=== PATIENT | male | born 1950 | race African-American/Black ===

== ENCOUNTER 2021-01-31 15:01 | Emergency (ER) | payer MEDICARE ==
[~2021-01-31] VITALS: Ht 185.4 cm; Wt 77.0 kg
[2021-01-31 15:05] VITALS: BP 140/93
== END 2021-01-31 16:54 | disposition home or self-care (01) ==
LOC: ER 15:01
DX: K40.90 Unilateral inguinal hernia, without obstruction or gangrene, not specified as recurrent (principal); R03.0 Elevated blood-pressure reading, without diagnosis of hypertension; Z86.59 Personal history of other mental and behavioral disorders
CPT/HCPCS: 99281

== ENCOUNTER 2021-02-10 09:20 | Emergency (ER) | payer MEDICARE ==
[~2021-02-10] VITALS: Ht 185.4 cm; Wt 77.0 kg
[2021-02-10] MEDS ORDERED: IBUPROFEN 600MG TABLET PO ONE (09:45)
[2021-02-10] MEDS ORDERED: IBUP-2029 MT (10:42)
[2021-02-10 10:53] VITALS: BP 112/60
== END 2021-02-10 10:54 | disposition home or self-care (01) ==
LOC: ER 09:20
DX: M25.551 Pain in right hip (principal); Z91.81 History of falling
CPT/HCPCS: 73502; 99282

== ENCOUNTER 2021-09-11 08:22 | Emergency (ER) | payer MEDICARE ==
[~2021-09-11] VITALS: Ht 182.9 cm; Wt 75.0 kg
[~2021-09-11 08:22] MED LIST: IBUP-2029 MT
[2021-09-11 08:33] VITALS: BP 153/90
== END 2021-09-11 11:18 | disposition left against medical advice (07) ==
LOC: ER 08:28
DX: K08.89 Other specified disorders of teeth and supporting structures (principal); Z53.21 Procedure and treatment not carried out due to patient leaving prior to being seen by health care provider

== ENCOUNTER 2024-01-24 11:28 | Emergency (ER) | payer MEDICARE ==
[~2024-01-24] VITALS: Ht 182.9 cm; Wt 73.0 kg
[~2024-01-24 11:28] MED LIST changes: +ALBU18HF2 IH; +AMLO5TAB88 PO; +FLUT1DIS3 INH; +P20 MT
[2024-01-24 12:08] LABS: HEMATOCRIT. 42.3 % (42.0-52.0); HEMOGLOBIN. 14.3 g/dL (14.0-18.0); MEAN CORPUSCULAR HEMOGLOBIN 32.1 pg (28.0-32.0); MEAN CORPUSCULAR HGB CONC 33.8 g/dL (31.0-37.0); MEAN CORPUSCULAR VOLUME 95.1 fL (80.0-94.0); MEAN PLATELET VOLUME 7.3 fl (7.4-10.4); PLATELET 261 x1000/uL (130-400); RED BLOOD CELL COUNT 4.45 mill/uL (4.7-6.1); RED CELL DISTRIBUTION WIDTH 13.5 % (11.6-14.6); WHITE BLOOD COUNT 10.9 x1000/uL (4.5-11.0)
[2024-01-24 12:14] LABS: DIFFERENTIAL COMMENT 1
[2024-01-24 12:33] LABS: CREATININE 1.1 mg/dL (0.6-1.3); GLUCOSE 98 mg/dL (70-105); TROPONIN I HIGH SENSITIVITY 17 ng/L (3.0-53); UREA NITROGEN BLOOD 7 mg/dL (9-23)
[2024-01-24] MEDS: MORPHINE SULFATE 2 MG/ML CPJ (NOT FOR IM USE) IV ONE (13:41)
[2024-01-24 15:30] LABS: PLATELET ESTIMATE NORMAL
[2024-01-24] MEDS: HALOPERIDOL LACTATE 5MG/ML VIAL IM ONE (16:11)
[2024-01-24] MEDS: FAMOTIDINE 20MG/2ML VIAL IV STA (16:11)
[2024-01-24] MEDS: MAGNESIUM/ALUMINUM HYDROXIDE/SIMETHICONE 30ML UDC PO STA (16:11)
[2024-01-24] MEDS: BISMUTH SUBSALICYLATE 262 MG/15 ML-120ML BOTTLE PO ONE (16:16)
[2024-01-24 16:47] LABS: CHLORIDE 104 mEq/L (98-107); POTASSIUM 5.4 mEq/L (3.5-5.1); SODIUM 138 mEq/L (136-145)
[2024-01-24 16:48] LABS: CARBON DIOXIDE 18 mEq/L (21-32)
[2024-01-24 16:49] LABS: CALCIUM 9.7 mg/dL (8.7-10.4)
[2024-01-24] MEDS: MORPHINE SULFATE 4 MG/ML INJ (FOR IV/IM USE) IV ONE (17:36)
[2024-01-24 17:47] VITALS: TEMP 97.8
[2024-01-24] MEDS: ASPIRIN 81MG TABLET PO ONE (19:00)
[2024-01-24 20:21] VITALS: O2SAT 99
[2024-01-24] MEDS: MIDAZOLAM HCL 2 MG/2 ML VIAL IV ONE (20:21)
[2024-01-24 20:26] LABS: CHLORIDE 102 mEq/L (98-107)
[2024-01-24 20:27] LABS: CARBON DIOXIDE 26 mEq/L (21-32); POTASSIUM 4.6 mEq/L (3.5-5.1); SODIUM 136 mEq/L (136-145)
[2024-01-24 20:28] LABS: CALCIUM 9.4 mg/dL (8.7-10.4)
[2024-01-24 20:32] LABS: CREATININE 1.2 mg/dL (0.6-1.3)
[2024-01-24 20:33] LABS: GLUCOSE 96 mg/dL (70-105); TROPONIN I HIGH SENSITIVITY 23 ng/L (3.0-53); UREA NITROGEN BLOOD 15 mg/dL (9-23)
[2024-01-24 20:34] LABS: ALANINE AMINOTRANSFERASE 10 IU/L (10-49); ASPARTATE AMINOTRANSFERASE 25 IU/L (<34)
[2024-01-24 20:35] LABS: BILIRUBIN TOTAL 0.5 mg/dL (0.1-1.0); PROTEIN TOTAL 6.5 g/dL (6.0-8.3)
[2024-01-24] MEDS: IOHEXOL-350 100 ML BOTTLE ONE (21:07)
[2024-01-24] MEDS ORDERED: ESMOLOL 2500MG PREMIX 250 ML IV ONE (22:30)
[2024-01-24] MEDS: ESMOLOL 2500MG PREMIX 250 ML IV PRN (23:30)
[2024-01-25 00:23] VITALS: BP 24/74; PULSE 56; RESP 16
== END 2024-01-25 00:30 | disposition short-term general hospital (02) ==
LOC: ER 11:28 → CANBEDREQ 01-25 00:45
DX: R07.89 Other chest pain (principal); F17.210 Nicotine dependence, cigarettes, uncomplicated; F12.10 Cannabis abuse, uncomplicated; R41.82 Altered mental status, unspecified; Z79.899 Other long term (current) drug therapy
CPT/HCPCS: 99285; 71275; 74174; 96374; 96375; 71045; 80053; 83690; 85025; 85379; 84484; 36415; 70450; 93005; 96372; 80048; 83880; Q9967; J3490; J1630; J2250; J2270

== ENCOUNTER 2024-03-30 11:36 | Emergency (ER) | payer MEDICARE ==
[~2024-03-30] VITALS: Ht 182.9 cm; Wt 81.0 kg
[2024-03-30 11:43] VITALS: O2SAT 100
[2024-03-30 11:46] VITALS: BP 168/96; PULSE 64; RESP 18; TEMP 98.1; O2SAT 99
[2024-03-30] MEDS ORDERED: ATOR20TA65 MT (12:13)
[2024-03-30] MEDS ORDERED: FURO-152 MT (12:13)
== END 2024-03-30 12:36 | disposition home or self-care (01) ==
LOC: ER 11:36
DX: R51.9 Headache, unspecified (principal); F12.10 Cannabis abuse, uncomplicated; Z00.00 Encounter for general adult medical examination without abnormal findings; Z76.0 Encounter for issue of repeat prescription; Z79.899 Other long term (current) drug therapy
CPT/HCPCS: 99281

== ENCOUNTER 2024-04-29 16:32 | Emergency (ER) | payer MEDICARE ==
[~2024-04-29] VITALS: Ht 185.4 cm; Wt 63.0 kg
[~2024-04-29 16:32] MED LIST changes: +ATOR20TA65 MT; +FURO-152 MT
[2024-04-29 16:36] VITALS: O2SAT 98
[2024-04-29] MEDS ORDERED: ATOR20TA65 MT (17:35)
[2024-04-29] MEDS ORDERED: FURO20TA4 MT ×2 (17:35→17:37)
[2024-04-29] MEDS ORDERED: ALBU18HF2 IH (17:41)
[2024-04-29 18:15] VITALS: BP 151/88; PULSE 100; RESP 16; TEMP 36.72516; O2SAT 98
== END 2024-04-29 18:19 | disposition home or self-care (01) ==
LOC: ER 16:32
DX: Z76.0 Encounter for issue of repeat prescription (principal); F10.20 Alcohol dependence, uncomplicated; F12.10 Cannabis abuse, uncomplicated; Z79.899 Other long term (current) drug therapy; Z98.890 Other specified postprocedural states; Z86.73 Personal history of transient ischemic attack (TIA), and cerebral infarction without residual deficits; Y90.9 Presence of alcohol in blood, level not specified
CPT/HCPCS: 99281

== ENCOUNTER 2024-05-05 18:53 | Emergency (ER) | payer MEDICARE ==
[~2024-05-05] VITALS: Ht 185.4 cm; Wt 60.0 kg
[~2024-05-05 18:53] MED LIST changes: +FURO20TA4 MT
[2024-05-05 19:02] VITALS: BP 153/120; PULSE 74; RESP 18; TEMP 98.1; O2SAT 97
== END 2024-05-05 21:58 | disposition home or self-care (01) ==
LOC: ER 18:59
DX: M25.511 Pain in right shoulder (principal); F12.10 Cannabis abuse, uncomplicated; Z86.73 Personal history of transient ischemic attack (TIA), and cerebral infarction without residual deficits; Z79.899 Other long term (current) drug therapy
CPT/HCPCS: 99281

== ENCOUNTER 2024-05-16 11:27 | Emergency (ER) | payer MEDICARE ==
[~2024-05-16] VITALS: Ht 188 cm; Wt 79.0 kg
[2024-05-16 11:32] VITALS: PULSE 72; O2SAT 99
[2024-05-16 11:37] VITALS: BP 157/108; TEMP 98; O2SAT 100
[2024-05-16 13:41] VITALS: RESP 16
[2024-05-16] MEDS: KETOROLAC 30MG/ML VIAL IM ONE (13:41)
[2024-05-16] MEDS ORDERED: IBUP-2030 MT (13:43)
[2024-05-16] MEDS ORDERED: AMOX1TAB16 MT (13:43)
== END 2024-05-16 13:54 | disposition home or self-care (01) ==
LOC: ER 11:27
DX: K08.89 Other specified disorders of teeth and supporting structures (principal); F12.10 Cannabis abuse, uncomplicated; Z79.899 Other long term (current) drug therapy; Z86.73 Personal history of transient ischemic attack (TIA), and cerebral infarction without residual deficits
CPT/HCPCS: 99283; 93005; 96372; J1885

== ENCOUNTER 2024-08-15 08:44 | Inpatient (IN) | payer MEDICARE, MEDICAID ==
[~2024-08-15] VITALS: Ht 185.4 cm; Wt 61.2 kg
[~2024-08-15 08:44] MED LIST changes: +AMOX1TAB16 MT; +IBUP-2030 MT
[2024-08-15 08:55] VITALS: RESP 38
[2024-08-15] MEDS: ALBUTEROL (0.083%) 2.5MG/3ML NEB HHN SCH (08:59)
[2024-08-15] MEDS: METHYLPREDNISOLONE SOD SUCC 125MG/2ML (ACT-O-VIAL) IV STA (08:59)
[2024-08-15] MEDS: IPRATROPIUM BROMIDE (0.02%) 0.5MG/2.5ML NEB HHN STA (09:00)
[2024-08-15] MEDS: MAGNESIUM 2 G PREMIX 50 ML IV ONE (09:06)
[2024-08-15 09:30] LABS: HEMATOCRIT. 47.2 % (42.0-52.0); HEMOGLOBIN. 15.4 g/dL (14.0-18.0); MEAN CORPUSCULAR HEMOGLOBIN 30.2 pg (28.0-32.0); MEAN CORPUSCULAR HGB CONC 32.7 g/dL (31.0-37.0); MEAN CORPUSCULAR VOLUME 92.3 fL (80.0-94.0); RED BLOOD CELL COUNT 5.11 mill/uL (4.7-6.1); RED CELL DISTRIBUTION WIDTH 14.6 % (11.6-14.6); WHITE BLOOD COUNT 5.1 x1000/uL (4.5-11.0)
[2024-08-15 09:38] VITALS: RESP 37
[2024-08-15 09:39] LABS: CARBON DIOXIDE 28 mEq/L (21-32); CHLORIDE 98 mEq/L (98-107); POTASSIUM 3.5 mEq/L (3.5-5.1); SODIUM 136 mEq/L (136-145)
[2024-08-15 09:40] LABS: CALCIUM 9.2 mg/dL (8.7-10.4)
[2024-08-15 09:45] LABS: CREATININE 1.1 mg/dL (0.6-1.3); GLUCOSE 139 mg/dL (70-105); UREA NITROGEN BLOOD 14 mg/dL (9-23)
[2024-08-15 09:48] LABS: DIFFERENTIAL COMMENT 1
[2024-08-15 09:49] LABS: TROPONIN I HIGH SENSITIVITY 151 ng/L (3.0-53)
[2024-08-15] MEDS: AZITHROMYCIN 500MG/250ML 250 ML IV SCH (09:53)
[2024-08-15 10:03] LABS: PLATELET 299 x1000/uL (130-400)
[2024-08-15 10:09] LABS: PLATELET ESTIMATE NORMAL
[2024-08-15 10:40] VITALS: RESP 29
[2024-08-15] MEDS: ALBUTEROL (0.5%) 2.5MG/0.5ML NEB HHN ONE (10:43)
[2024-08-15 12:15] VITALS: RESP 29
[2024-08-15 12:42] LABS: TROPONIN I HIGH SENSITIVITY 127 ng/L (3.0-53)
[2024-08-15] MEDS ORDERED: ONDANSETRON HCL 4MG/2ML INJ IV PRN (13:30)
[2024-08-15] MEDS ORDERED: AMLODIPINE 5MG TABLET PO SCH (14:30)
[2024-08-15] MEDS: AMLODIPINE 5MG TABLET PO SCH (14:45)
[2024-08-15 17:58] LABS: TROPONIN I HIGH SENSITIVITY 139 ng/L (3.0-53)
[2024-08-15] MEDS: ENOXAPARIN 40MG/0.4ML SYR SUBCUT SCH (21:35)
[2024-08-15] MEDS: ATORVASTATIN CALCIUM 20MG TABLET PO SCH (21:36)
[2024-08-16] VITALS (10 sets, daily range): BP systolic 99–155; BP diastolic 80–93; PULSE 68–94; RESP 14–24; TEMP 36.33624–36.696; O2SAT 91–98
[2024-08-16 09:22] LABS: BG BASE EXCESS 7.4 mmol/L (-2.0-3.0); BG CARBOXYHEMOGLOBIN 0.6 % (0.5-1.5); BG DEOXYHEMOGLOBIN 8.8 % (0.0-5.0); BG HCO3 ACT 32.6 mmol/L (21.0-28.0); BG METHEMOGLOBIN 0.3 % (0.5-1.5); BG OXYGEN SATURATION 91.1 % (94.0-98.0); BG OXYHEMOGLOBIN 90.3 % (94.0-98.0); BG PCO2 47.7 mmHg (35.0-48.0); BG PH 7.453 (7.350-7.450); BG PO2 60.9 mmHg (83.0-108.0); BG SAMPLE SITE RIGHT RADIAL; BG TOTAL HEMOGLOBIN 14.5 g/dL (13.5-17.5); BG VENT MODE ROOM AIR
[2024-08-16] MEDS: ASPIRIN 81MG EC TABLET PO SCH (10:12)
[2024-08-16] MEDS: LOSARTAN 50 MG TABLET PO SCH (11:00)
[2024-08-16 13:02] LABS: CARBON DIOXIDE 32 mEq/L (21-32); CHLORIDE 97 mEq/L (98-107); POTASSIUM 3.8 mEq/L (3.5-5.1); SODIUM 136 mEq/L (136-145)
[2024-08-16 13:03] LABS: CALCIUM 9.1 mg/dL (8.7-10.4)
[2024-08-16 13:06] LABS: BASOPHILS % 0.2 % (0.0-2.0); EOSINOPHILS % 0.1 % (0.0-5.0); HEMATOCRIT. 38.4 % (42.0-52.0); HEMOGLOBIN. 12.8 g/dL (14.0-18.0); LYMPHOCYTES % 7.1 % (20.0-50.0); MEAN CORPUSCULAR HEMOGLOBIN 30.1 pg (28.0-32.0); MEAN CORPUSCULAR HGB CONC 33.4 g/dL (31.0-37.0); MEAN CORPUSCULAR VOLUME 89.9 fL (80.0-94.0); MEAN PLATELET VOLUME 8.3 fl (7.4-10.4); MONOCYTES % 8.9 % (2.0-8.0); NEUTROPHILS % 83.7 % (40.0-76.0); PLATELET 291 x1000/uL (130-400); RED BLOOD CELL COUNT 4.27 mill/uL (4.7-6.1); RED CELL DISTRIBUTION WIDTH 14.2 % (11.6-14.6); WHITE BLOOD COUNT 12.2 x1000/uL (4.5-11.0)
[2024-08-16 13:08] LABS: GLUCOSE 100 mg/dL (70-105); UREA NITROGEN BLOOD 25 mg/dL (9-23)
[2024-08-16 13:12] LABS: T4 FREE 1.97 ng/dL (0.89-1.76); THYROID STIMULATING HORMONE < 0.10 uIU/mL (0.55-4.78)
[2024-08-16] MEDS: PANTOPRAZOLE SODIUM 40 MG/VIAL IV SCH (20:06)
[2024-08-16] MEDS: IPRATROPIUM/ALBUTEROL 0.5-3(2.5)MG/3ML NEB HHN SCH (20:55)
[2024-08-16] MEDS: BUDESONIDE 0.5MG/2ML NEB HHN SCH (20:55)
[2024-08-16] MEDS: PIPERACILLIN/TAZO 3.375G/100ML 100 ML IV SCH (21:57)
[2024-08-17] VITALS (17 sets, daily range): BP systolic 97–139; BP diastolic 58–95; PULSE 69–87; RESP 15–25; TEMP 36.6696–37.2252; O2SAT 90–99
[2024-08-17 06:58] LABS: CALCIUM 8.8 mg/dL (8.7-10.4); CHLORIDE 97 mEq/L (98-107); POTASSIUM 3.3 mEq/L (3.5-5.1); SODIUM 137 mEq/L (136-145)
[2024-08-17 06:59] LABS: CARBON DIOXIDE 34 mEq/L (21-32)
[2024-08-17 07:04] LABS: GLUCOSE 105 mg/dL (70-105)
[2024-08-17 07:05] LABS: UREA NITROGEN BLOOD 23 mg/dL (9-23)
[2024-08-17 07:24] LABS: CLARITY URINE CLEAR (CLEAR); COLOR URINE YELLOW (YELLOW); GLUCOSE URINE NEGATIVE (NEGATIVE); KETONES URINE NEGATIVE (NEGATIVE); LEUKOCYTE ESTERASE URINE NEGATIVE (NEGATIVE); NITRITE URINE NEGATIVE (NEGATIVE); OCCULT BLOOD URINE NEGATIVE (NEGATIVE); PH URINE 6.5 (4.5-8.0); PROTEIN URINE TRACE (NEGATIVE); SPECIFIC GRAVITY URINE 1.028 (1.005-1.030)
[2024-08-17 07:31] LABS: *AMPHETAMINES SCREEN URINE NEGATIVE (NEGATIVE); *BARBITURATES SCREEN URINE NEGATIVE (NEGATIVE); *BENZODIAZEPINES SCREEN URINE NEGATIVE (NEGATIVE); *COCAINE SCREEN URINE PRESUMPTIVE POSITIVE (NEGATIVE); CANNABINOID URINE SCREEN PRESUMPTIVE POSITIVE (NEGATIVE); ECSTASY MDMA SCREEN URINE NEGATIVE (NEGATIVE); METHADONE URINE SCREEN NEGATIVE (NEGATIVE); OPIATES URINE SCREEN NEGATIVE (NEGATIVE); PHENCYCLIDINE URINE SCREEN NEGATIVE (NEGATIVE)
[2024-08-17 07:35] LABS: BASOPHILS % 0.2 % (0.0-2.0); EOSINOPHILS % 0.3 % (0.0-5.0); HEMATOCRIT. 37.3 % (42.0-52.0); HEMOGLOBIN. 12.6 g/dL (14.0-18.0); LYMPHOCYTES % 13.7 % (20.0-50.0); MEAN CORPUSCULAR HEMOGLOBIN 30.7 pg (28.0-32.0); MEAN CORPUSCULAR HGB CONC 33.9 g/dL (31.0-37.0); MEAN CORPUSCULAR VOLUME 90.6 fL (80.0-94.0); MEAN PLATELET VOLUME 8.1 fl (7.4-10.4); NEUTROPHILS % 72.8 % (40.0-76.0); PLATELET 294 x1000/uL (130-400); RED BLOOD CELL COUNT 4.12 mill/uL (4.7-6.1); RED CELL DISTRIBUTION WIDTH 14.1 % (11.6-14.6); WHITE BLOOD COUNT 8.1 x1000/uL (4.5-11.0)
[2024-08-17 07:51] LABS: RBC URINE NONE SEEN /hpf (0-2); SQUAMOUS EPITHELIAL CELL URINE NONE SEEN /lpf (RARE/1+); WBC URINE 0-2 /hpf (0-2)
[2024-08-17 07:52] LABS: BACTERIA URINE TRACE
[2024-08-17] MEDS: POTASSIUM CHLORIDE 20MEQ TABLET SR PO NR ×2 (10:34→20:52)
[2024-08-18] VITALS (14 sets, daily range): BP systolic 112–161; BP diastolic 74–121; PULSE 67–85; RESP 15–31; TEMP 36.16956–37.2252; O2SAT 92–98
[2024-08-18] MEDS: FAMOTIDINE 20MG/2ML VIAL IV SCH (09:23)
[2024-08-18 10:50] LABS: BG BASE EXCESS 6.3 mmol/L (-2.0-3.0); BG DEOXYHEMOGLOBIN 6.5 % (0.0-5.0); BG FRACTION INSPIRED OXYGEN 32; BG HCO3 ACT 31.6 mmol/L (21.0-28.0); BG METHEMOGLOBIN 0.3 % (0.5-1.5); BG OXYGEN SATURATION 93.4 % (94.0-98.0); BG OXYHEMOGLOBIN 92.2 % (94.0-98.0); BG PCO2 48.3 mmHg (35.0-48.0); BG PH 7.434 (7.350-7.450); BG PO2 67.8 mmHg (83.0-108.0); BG SAMPLE SITE RIGHT RADIAL; BG TOTAL HEMOGLOBIN 13.3 g/dL (13.5-17.5); BG VENT MODE NASAL CANNULA
[2024-08-18 11:17] LABS: CHLORIDE 98 mEq/L (98-107); SODIUM 137 mEq/L (136-145)
[2024-08-18 11:18] LABS: CARBON DIOXIDE 32 mEq/L (21-32)
[2024-08-18 11:23] LABS: CREATININE 0.9 mg/dL (0.6-1.3); GLUCOSE 142 mg/dL (70-105); UREA NITROGEN BLOOD 19 mg/dL (9-23)
[2024-08-18] MEDS ORDERED: METHIMAZOLE 5MG TABLET PO SCH (15:15)
[2024-08-18 20:07] LABS: THYROID STIMULATING HORMONE 0.11 uIU/mL (0.55-4.78)
[2024-08-18 20:08] LABS: T4 FREE 1.67 ng/dL (0.89-1.76)
[2024-08-19] VITALS (18 sets, daily range): BP systolic 112–174; BP diastolic 72–148; PULSE 69–110; RESP 16–29; TEMP 36.28068–37.11408; O2SAT 89–100
[2024-08-19 06:43] LABS: CARBON DIOXIDE 34 mEq/L (21-32); CHLORIDE 98 mEq/L (98-107); POTASSIUM 4.1 mEq/L (3.5-5.1); SODIUM 137 mEq/L (136-145)
[2024-08-19 06:44] LABS: CALCIUM 9.3 mg/dL (8.7-10.4)
[2024-08-19 06:48] LABS: CREATININE 0.9 mg/dL (0.6-1.3)
[2024-08-19 06:49] LABS: GLUCOSE 101 mg/dL (70-105); UREA NITROGEN BLOOD 19 mg/dL (9-23)
[2024-08-19 11:33] LABS: HEMATOCRIT 37.5 % (42.0-52.0); HEMOGLOBIN 12.6 g/dL (14.0-18.0); MEAN CORPUSCULAR HEMOGLOBIN 30.8 pg (28.0-32.0); MEAN CORPUSCULAR HGB CONC 33.6 g/dL (31.0-37.0); MEAN CORPUSCULAR VOLUME 91.5 fL (80.0-94.0); PLATELET 391 x1000/uL (130-400); RED CELL DISTRIBUTION WIDTH 14.1 % (11.6-14.6); WHITE BLOOD COUNT 7.9 x1000/uL (4.5-11.0)
[2024-08-19] MEDS: CLONIDINE 0.1MG TABLET PO PRN (23:18)
[2024-08-20] VITALS (15 sets, daily range): BP systolic 93–140; BP diastolic 59–104; PULSE 66–97; RESP 14–26; TEMP 36.55848–36.78072; O2SAT 94–99
[2024-08-20] MEDS: PIPERACILLIN/TAZO 3.375G/50ML 50 ML IV SCH (22:40)
[2024-08-21] VITALS (96 sets, daily range): BP systolic 73–197; BP diastolic 52–148; PULSE 63–115; RESP 16–31; TEMP 36.61404–37.66968; O2SAT 90–100
[2024-08-21] MEDS ORDERED: LORAZEPAM 2MG/ML INJ ONE (04:29)
[2024-08-21] MEDS: METHYLPREDNISOLONE SOD SUCC 40MG/ML (ACT-O-VIAL) IM NR (04:30)
[2024-08-21] MEDS: LORAZEPAM 2MG/ML INJ IV NR (04:30)
[2024-08-21] MEDS: PROPOFOL 10MG/ML 100ML 100 ML IV PRN (05:49)
[2024-08-21] MEDS: MAGNESIUM 2 G PREMIX 50 ML IV NR (05:52)
[2024-08-21] MEDS: FUROSEMIDE 40MG/4ML VIAL IVP SCH (05:52)
[2024-08-21] MEDS: MIDAZOLAM 100MG/100ML PMX 100 ML IV PRN (07:55)
[2024-08-21 09:21] LABS: BG BASE EXCESS 5.5 mmol/L (-2.0-3.0); BG CARBOXYHEMOGLOBIN 0.7 % (0.5-1.5); BG DEOXYHEMOGLOBIN 3.4 % (0.0-5.0); BG FRACTION INSPIRED OXYGEN 40; BG HCO3 ACT 32.5 mmol/L (21.0-28.0); BG METHEMOGLOBIN 0.1 % (0.5-1.5); BG OXYGEN SATURATION 96.6 % (94.0-98.0); BG OXYHEMOGLOBIN 95.8 % (94.0-98.0); BG PCO2 58.5 mmHg (35.0-48.0); BG PH 7.363 (7.350-7.450); BG PO2 88.2 mmHg (83.0-108.0); BG SAMPLE SITE RIGHT RADIAL; BG TOTAL HEMOGLOBIN 13.3 g/dL (13.5-17.5); BG TOTAL RESPIRATORY RATE 23 b/min; BG VENT MODE VENT - AC
[2024-08-21 09:59] LABS: HEMATOCRIT 37.7 % (42.0-52.0); HEMOGLOBIN 12.3 g/dL (14.0-18.0); MEAN CORPUSCULAR HEMOGLOBIN 30.1 pg (28.0-32.0); MEAN CORPUSCULAR HGB CONC 32.6 g/dL (31.0-37.0); MEAN CORPUSCULAR VOLUME 92.2 fL (80.0-94.0); PLATELET 436 x1000/uL (130-400); RED BLOOD CELL COUNT 4.09 mill/uL (4.7-6.1); RED CELL DISTRIBUTION WIDTH 14.3 % (11.6-14.6); WHITE BLOOD COUNT 12.1 x1000/uL (4.5-11.0)
[2024-08-21 10:03] LABS: CARBON DIOXIDE 32 mEq/L (21-32); CHLORIDE 101 mEq/L (98-107); SODIUM 139 mEq/L (136-145)
[2024-08-21 10:04] LABS: CALCIUM 9.3 mg/dL (8.7-10.4)
[2024-08-21 10:08] LABS: CREATININE 1.2 mg/dL (0.6-1.3); GLUCOSE 127 mg/dL (70-105)
[2024-08-21 10:09] LABS: UREA NITROGEN BLOOD 25 mg/dL (9-23)
[2024-08-21] MEDS: METHYLPREDNISOLONE SOD SUCC 125MG/2ML (ACT-O-VIAL) IV SCH ×2 (13:37→13:50)
[2024-08-21] MEDS: PIPERACILLIN/TAZO 3.375G/100ML 100 ML IV SCH (13:38)
[2024-08-21] MEDS: METHYLPREDNISOLONE SOD SUCC 40MG/ML (ACT-O-VIAL) IV SCH (14:00)
[2024-08-21] MEDS: BUDESONIDE 0.5MG/2ML NEB HHN SCH (15:42)
[2024-08-21] MEDS: DEXMEDETOMIDINE 400 MCG/100 ML 100 ML IV PRN (19:10)
[2024-08-21] MEDS: IPRATROPIUM/ALBUTEROL 0.5-3(2.5)MG/3ML NEB HHN SCH (20:06)
[2024-08-22] VITALS (112 sets, daily range): BP systolic 73–199; BP diastolic 56–129; PULSE 44–85; RESP 2–26; TEMP 36.3918–36.9474; O2SAT 96–100
[2024-08-22 05:32] LABS: HEMATOCRIT. 36.2 % (42.0-52.0); HEMOGLOBIN. 12.2 g/dL (14.0-18.0); MEAN CORPUSCULAR HEMOGLOBIN 30.8 pg (28.0-32.0); MEAN CORPUSCULAR HGB CONC 33.7 g/dL (31.0-37.0); MEAN CORPUSCULAR VOLUME 91.4 fL (80.0-94.0); MEAN PLATELET VOLUME 7.7 fl (7.4-10.4); PLATELET 453 x1000/uL (130-400); RED BLOOD CELL COUNT 3.96 mill/uL (4.7-6.1); RED CELL DISTRIBUTION WIDTH 13.7 % (11.6-14.6); WHITE BLOOD COUNT 10.9 x1000/uL (4.5-11.0)
[2024-08-22 05:44] LABS: POTASSIUM 5.7 mEq/L (3.5-5.1)
[2024-08-22 05:45] LABS: CALCIUM 9.5 mg/dL (8.7-10.4)
[2024-08-22 05:54] LABS: CREATININE 1.7 mg/dL (0.6-1.3)
[2024-08-22] MEDS: NOREPINEPHRINE 8MG/250ML PMX 250 ML IV PRN (06:24)
[2024-08-22 07:24] LABS: DIFFERENTIAL COMMENT 1
[2024-08-22 10:24] LABS: BG BASE EXCESS 0.9 mmol/L (-2.0-3.0); BG CARBOXYHEMOGLOBIN 0.7 % (0.5-1.5); BG DEOXYHEMOGLOBIN 1.6 % (0.0-5.0); BG FRACTION INSPIRED OXYGEN 40; BG HCO3 ACT 26.5 mmol/L (21.0-28.0); BG OXYGEN SATURATION 98.4 % (94.0-98.0); BG OXYHEMOGLOBIN 97.7 % (94.0-98.0); BG PCO2 45.9 mmHg (35.0-48.0); BG PH 7.379 (7.350-7.450); BG PO2 113.2 mmHg (83.0-108.0); BG SAMPLE SITE RIGHT RADIAL; BG VENT MODE VENT - AC
[2024-08-22] MEDS: MIDODRINE HCL 5MG TABLET PO SCH (11:26)
[2024-08-22] MEDS: SODIUM CHLORIDE 0.45% 1,000 ML IV SCH (18:07)
[2024-08-22] MEDS: PROPOFOL 10MG/ML 100ML 100 ML IV PRN (19:57)
[2024-08-23] VITALS (108 sets, daily range): BP systolic 98–169; BP diastolic 70–111; PULSE 58–88; RESP 12–32; TEMP 36.6696–36.89184; O2SAT 94–100
[2024-08-23 05:28] LABS: CARBON DIOXIDE 31 mEq/L (21-32); CHLORIDE 100 mEq/L (98-107); POTASSIUM 4.9 mEq/L (3.5-5.1); SODIUM 139 mEq/L (136-145)
[2024-08-23 05:30] LABS: CALCIUM 9.5 mg/dL (8.7-10.4)
[2024-08-23 05:34] LABS: CREATININE 1.3 mg/dL (0.6-1.3); GLUCOSE 123 mg/dL (70-105); UREA NITROGEN BLOOD 52 mg/dL (9-23)
[2024-08-23 05:38] LABS: HEMATOCRIT. 36.9 % (42.0-52.0); HEMOGLOBIN. 12.3 g/dL (14.0-18.0); MEAN CORPUSCULAR HEMOGLOBIN 30.4 pg (28.0-32.0); MEAN CORPUSCULAR HGB CONC 33.3 g/dL (31.0-37.0); MEAN CORPUSCULAR VOLUME 91.4 fL (80.0-94.0); MEAN PLATELET VOLUME 8.1 fl (7.4-10.4); PLATELET 463 x1000/uL (130-400); RED BLOOD CELL COUNT 4.04 mill/uL (4.7-6.1); RED CELL DISTRIBUTION WIDTH 14.2 % (11.6-14.6); WHITE BLOOD COUNT 10.8 x1000/uL (4.5-11.0)
[2024-08-23 06:48] LABS: DIFFERENTIAL COMMENT 1
[2024-08-23 08:40] LABS: BG BASE EXCESS 3.4 mmol/L (-2.0-3.0); BG CARBOXYHEMOGLOBIN 0.3 % (0.5-1.5); BG FRACTION INSPIRED OXYGEN 40; BG HCO3 ACT 27.6 mmol/L (21.0-28.0); BG METHEMOGLOBIN 0.3 % (0.5-1.5); BG OXYHEMOGLOBIN 98.4 % (94.0-98.0); BG PCO2 40.5 mmHg (35.0-48.0); BG PH 7.451 (7.350-7.450); BG PO2 140.4 mmHg (83.0-108.0); BG SAMPLE SITE RIGHT RADIAL; BG TOTAL HEMOGLOBIN 12.8 g/dL (13.5-17.5); BG TOTAL RESPIRATORY RATE 20 b/min; BG VENT MODE VENT - AC
[2024-08-23] MEDS: HALOPERIDOL LACTATE 5MG/ML VIAL IM PRN (10:40)
[2024-08-23 11:33] LABS: PLATELET ESTIMATE SLIGHTLY INCREASED
[2024-08-23 12:15] LABS: BG BASE EXCESS 6.1 mmol/L (-2.0-3.0); BG CARBOXYHEMOGLOBIN 0.4 % (0.5-1.5); BG DEOXYHEMOGLOBIN 2.2 % (0.0-5.0); BG FRACTION INSPIRED OXYGEN 40; BG HCO3 ACT 31.2 mmol/L (21.0-28.0); BG METHEMOGLOBIN 0.3 % (0.5-1.5); BG OXYGEN SATURATION 97.8 % (94.0-98.0); BG OXYHEMOGLOBIN 97.1 % (94.0-98.0); BG PCO2 46.6 mmHg (35.0-48.0); BG PH 7.443 (7.350-7.450); BG SAMPLE SITE RIGHT RADIAL; BG TOTAL HEMOGLOBIN 13.2 g/dL (13.5-17.5); BG VENT MODE VENT - CPAP
[2024-08-23 12:50] LABS: AMMONIA 19 uMol/L (<32)
[2024-08-23] MEDS: IPRATROPIUM/ALBUTEROL 0.5-3(2.5)MG/3ML NEB HHN PRN (13:08)
[2024-08-23] MEDS: ACETYLCYSTEINE 200MG/ML 20% VIAL 4ML INH SCH (15:29)
[2024-08-23 16:14] LABS: PLATELET ESTIMATE NORMAL
[2024-08-23] MEDS: PROPOFOL 10MG/ML 100ML 100 ML IV PRN (19:19)
[2024-08-23] MEDS: AMLODIPINE 2.5MG TABLET PO SCH (21:00)
[2024-08-24] VITALS (100 sets, daily range): BP systolic 93–207; BP diastolic 49–174; PULSE 46–107; RESP 3–35; TEMP 36.114–37.2252; O2SAT 40–100
[2024-08-24] MEDS ORDERED: CEFEPIME HCL 1000MG VIAL IM SCH (01:00)
[2024-08-24] MEDS: CEFEPIME 1GM PREMIX 50ML IV SCH (02:12)
[2024-08-24 06:49] LABS: ALBUMIN 3.8 g/dL (3.2-4.8)
[2024-08-24 06:50] LABS: ALANINE AMINOTRANSFERASE 61 IU/L (10-49); ASPARTATE AMINOTRANSFERASE 31 IU/L (<34); BILIRUBIN TOTAL 0.3 mg/dL (0.1-1.0); PROTEIN TOTAL 6.6 g/dL (6.0-8.3)
[2024-08-24 06:52] LABS: BILIRUBIN DIRECT < 0.1 mg/dL (<=3.0); VITAMIN B12 SERUM 723 pg/mL (211-911)
[2024-08-24 09:16] LABS: HEMATOCRIT. 37.1 % (42.0-52.0); HEMOGLOBIN. 12.1 g/dL (14.0-18.0); MEAN CORPUSCULAR HEMOGLOBIN 30.3 pg (28.0-32.0); MEAN CORPUSCULAR HGB CONC 32.7 g/dL (31.0-37.0); MEAN CORPUSCULAR VOLUME 92.5 fL (80.0-94.0); MEAN PLATELET VOLUME 8.5 fl (7.4-10.4); PLATELET 431 x1000/uL (130-400); RED BLOOD CELL COUNT 4.01 mill/uL (4.7-6.1); WHITE BLOOD COUNT 9.6 x1000/uL (4.5-11.0)
[2024-08-24 09:19] LABS: CHLORIDE 103 mEq/L (98-107); POTASSIUM 4.6 mEq/L (3.5-5.1); SODIUM 141 mEq/L (136-145)
[2024-08-24 09:20] LABS: CALCIUM 9.4 mg/dL (8.7-10.4); CARBON DIOXIDE 28 mEq/L (21-32)
[2024-08-24 09:25] LABS: CREATININE 0.9 mg/dL (0.6-1.3); GLUCOSE 130 mg/dL (70-105); UREA NITROGEN BLOOD 33 mg/dL (9-23)
[2024-08-24 09:51] LABS: DIFFERENTIAL COMMENT 1
[2024-08-24 12:30] LABS: BG BASE EXCESS 5.6 mmol/L (-2.0-3.0); BG CARBOXYHEMOGLOBIN 0.3 % (0.5-1.5); BG DEOXYHEMOGLOBIN 4.1 % (0.0-5.0); BG FRACTION INSPIRED OXYGEN 40; BG HCO3 ACT 31.4 mmol/L (21.0-28.0); BG METHEMOGLOBIN 0.3 % (0.5-1.5); BG OXYGEN SATURATION 95.9 % (94.0-98.0); BG OXYHEMOGLOBIN 95.3 % (94.0-98.0); BG PCO2 50.4 mmHg (35.0-48.0); BG PH 7.412 (7.350-7.450); BG PO2 84.6 mmHg (83.0-108.0); BG SAMPLE SITE RIGHT RADIAL; BG TOTAL HEMOGLOBIN 13.6 g/dL (13.5-17.5); BG VENT MODE VENT - CPAP
[2024-08-24 16:18] LABS: PLATELET ESTIMATE NORMAL
[2024-08-25] VITALS (80 sets, daily range): BP systolic 104–202; BP diastolic 51–156; PULSE 45–101; RESP 8–33; TEMP 36.44736–37.05852; O2SAT 95–100
[2024-08-25 05:43] LABS: HEMATOCRIT. 35.9 % (42.0-52.0); HEMOGLOBIN. 11.7 g/dL (14.0-18.0); MEAN CORPUSCULAR HEMOGLOBIN 30.2 pg (28.0-32.0); MEAN CORPUSCULAR HGB CONC 32.6 g/dL (31.0-37.0); MEAN CORPUSCULAR VOLUME 92.6 fL (80.0-94.0); MEAN PLATELET VOLUME 8.1 fl (7.4-10.4); PLATELET 421 x1000/uL (130-400); RED BLOOD CELL COUNT 3.88 mill/uL (4.7-6.1); RED CELL DISTRIBUTION WIDTH 13.8 % (11.6-14.6); WHITE BLOOD COUNT 8.8 x1000/uL (4.5-11.0)
[2024-08-25 06:03] LABS: CHLORIDE 104 mEq/L (98-107); POTASSIUM 4.4 mEq/L (3.5-5.1); SODIUM 142 mEq/L (136-145)
[2024-08-25 06:04] LABS: CALCIUM 9.4 mg/dL (8.7-10.4); CARBON DIOXIDE 33 mEq/L (21-32)
[2024-08-25 06:09] LABS: CREATININE 0.7 mg/dL (0.6-1.3); GLUCOSE 118 mg/dL (70-105); UREA NITROGEN BLOOD 25 mg/dL (9-23)
[2024-08-25 06:21] LABS: DIFFERENTIAL COMMENT 1
[2024-08-25 10:53] LABS: PLATELET ESTIMATE INCREASED
[2024-08-25 17:14] LABS: BG BASE EXCESS 6.9 mmol/L (-2.0-3.0); BG CARBOXYHEMOGLOBIN 0.3 % (0.5-1.5); BG DEOXYHEMOGLOBIN 2.3 % (0.0-5.0); BG FRACTION INSPIRED OXYGEN 40; BG METHEMOGLOBIN 0.3 % (0.5-1.5); BG OXYGEN SATURATION 97.7 % (94.0-98.0); BG OXYHEMOGLOBIN 97.1 % (94.0-98.0); BG PCO2 53.8 mmHg (35.0-48.0); BG PH 7.406 (7.350-7.450); BG PO2 102.4 mmHg (83.0-108.0); BG SAMPLE SITE RIGHT RADIAL; BG TOTAL HEMOGLOBIN 12.6 g/dL (13.5-17.5); BG VENT MODE MASK - CPAP
[2024-08-25] MEDS ORDERED: SENNOSIDES/DOCUSATE SOD 8.6/50MG TABLET PO PRN (20:30)
[2024-08-25] MEDS: TRAZODONE HCL 50MG TABLET PO SCH (20:51)
[2024-08-25] MEDS: DOCUSATE SODIUM SUGAR FREE 100MG/10ML UDC NG SCH (23:53)
[2024-08-26] VITALS (11 sets, daily range): BP systolic 126–146; BP diastolic 71–86; PULSE 66–98; RESP 11–24; TEMP 36.6696–36.9474; O2SAT 94–99
[2024-08-26 00:49] LABS: BG BASE EXCESS 7.1 mmol/L (-2.0-3.0); BG CARBOXYHEMOGLOBIN 0.9 % (0.5-1.5); BG DEOXYHEMOGLOBIN 4.7 % (0.0-5.0); BG FRACTION INSPIRED OXYGEN 35; BG METHEMOGLOBIN 0.3 % (0.5-1.5); BG OXYGEN SATURATION 95.2 % (94.0-98.0); BG OXYHEMOGLOBIN 94.1 % (94.0-98.0); BG PH 7.421 (7.350-7.450); BG PO2 77.3 mmHg (83.0-108.0); BG SAMPLE SITE LEFT RADIAL; BG TOTAL HEMOGLOBIN 14.2 g/dL (13.5-17.5); BG VENT MODE COOL AEROSOL
[2024-08-26 06:38] LABS: CHLORIDE 103 mEq/L (98-107); POTASSIUM 4.3 mEq/L (3.5-5.1); SODIUM 141 mEq/L (136-145)
[2024-08-26 06:39] LABS: CARBON DIOXIDE 32 mEq/L (21-32)
[2024-08-26 06:40] LABS: CALCIUM 9.2 mg/dL (8.7-10.4)
[2024-08-26 06:44] LABS: CREATININE 0.6 mg/dL (0.6-1.3); GLUCOSE 107 mg/dL (70-105)
[2024-08-26 06:45] LABS: UREA NITROGEN BLOOD 23 mg/dL (9-23)
[2024-08-26 06:52] LABS: HEMATOCRIT. 34.6 % (42.0-52.0); HEMOGLOBIN. 11.5 g/dL (14.0-18.0); MEAN CORPUSCULAR HEMOGLOBIN 30.9 pg (28.0-32.0); MEAN CORPUSCULAR HGB CONC 33.3 g/dL (31.0-37.0); MEAN CORPUSCULAR VOLUME 92.6 fL (80.0-94.0); MEAN PLATELET VOLUME 8.5 fl (7.4-10.4); PLATELET 424 x1000/uL (130-400); RED BLOOD CELL COUNT 3.74 mill/uL (4.7-6.1); RED CELL DISTRIBUTION WIDTH 13.5 % (11.6-14.6); WHITE BLOOD COUNT 9.1 x1000/uL (4.5-11.0)
[2024-08-26 07:14] LABS: DIFFERENTIAL COMMENT 1
[2024-08-26 09:10] LABS: BG BASE EXCESS 4.9 mmol/L (-2.0-3.0); BG CARBOXYHEMOGLOBIN 0.3 % (0.5-1.5); BG FRACTION INSPIRED OXYGEN 32; BG HCO3 ACT 30.1 mmol/L (21.0-28.0); BG METHEMOGLOBIN 0.3 % (0.5-1.5); BG OXYHEMOGLOBIN 93.4 % (94.0-98.0); BG PCO2 47.3 mmHg (35.0-48.0); BG PH 7.422 (7.350-7.450); BG PO2 71.5 mmHg (83.0-108.0); BG SAMPLE SITE RIGHT RADIAL; BG TOTAL HEMOGLOBIN 12.5 g/dL (13.5-17.5); BG VENT MODE NASAL CANNULA
[2024-08-26] MEDS: LORAZEPAM 1MG TABLET PO PRN (19:44)
[2024-08-26 21:26] LABS: PLATELET ESTIMATE NORMAL
[2024-08-26] MEDS ORDERED: *PATIENT'S OWN MEDICATION STORAGE XX SCH (23:45)
[2024-08-27 00:03] VITALS: PULSE 83; RESP 18
[2024-08-27 08:00] VITALS: BP 152/106; PULSE 98; RESP 20; TEMP 36.3918; O2SAT 96
[2024-08-27] MEDS: HALOPERIDOL LACTATE 5MG/ML VIAL IM SCH (11:10)
[2024-08-27 12:00] VITALS: BP 156/106; PULSE 93; RESP 20; TEMP 36.33624; O2SAT 95
[2024-08-27] MEDS: LORAZEPAM 2MG/ML INJ IM PRN (12:09)
[2024-08-27] MEDS: DIPHENHYDRAMINE 50MG/ML VIAL IM PRN (12:24)
[2024-08-27] MEDS: OLANZAPINE 10 MG/VIAL IM NR (16:24)
[2024-08-27] MEDS: FUROSEMIDE 40MG TABLET PO SCH (17:15)
[2024-08-27 20:00] VITALS: BP 155/108; PULSE 89; RESP 20; TEMP 36.50292; O2SAT 97
[2024-08-27 21:59] VITALS: PULSE 75; RESP 17; O2SAT 94
[2024-08-28] VITALS (37 sets, daily range): BP systolic 92–168; BP diastolic 62–131; PULSE 61–87; RESP 11–20; TEMP 36.00288–36.9474; O2SAT 97–100
[2024-08-28] MEDS: POTASSIUM CHLORIDE 10MEQ TABLET SR PO SCH (08:27)
[2024-08-28] MEDS: OLANZAPINE 5MG TABLET PO SCH (20:41)
[2024-08-29] VITALS (8 sets, daily range): BP systolic 95–124; BP diastolic 65–78; PULSE 63–88; RESP 16–20; TEMP 36.22512–36.6696; O2SAT 96–100
[2024-08-29] MEDS: IPRATROPIUM/ALBUTEROL 0.5-3(2.5)MG/3ML NEB HHN SCH (13:15)
[2024-08-30] VITALS (9 sets, daily range): BP systolic 107–146; BP diastolic 70–85; PULSE 64–90; RESP 18–20; TEMP 35.66952–36.78072; O2SAT 96–100
[2024-08-30] MEDS: FAMOTIDINE 20MG TABLET PO SCH (09:14)
[2024-08-31] VITALS: BP 139/72; PULSE 82; RESP 18; TEMP 36.05844; O2SAT 95
[2024-08-31 04:00] VITALS: BP 123/73; PULSE 73; RESP 18; TEMP 36.114; O2SAT 95
[2024-08-31 08:00] VITALS: BP 115/75; PULSE 74; RESP 20; TEMP 36.78072; O2SAT 99
[2024-08-31 15:20] VITALS: PULSE 98; RESP 20; O2SAT 98
[2024-08-31 16:00] VITALS: BP 144/89; PULSE 87; RESP 20; TEMP 36.61404; O2SAT 100
[2024-08-31 20:00] VITALS: BP 124/79; PULSE 92; RESP 18; TEMP 36.50292; O2SAT 97
[2024-09-01] VITALS (8 sets, daily range): BP systolic 110–128; BP diastolic 61–82; PULSE 73–96; RESP 18–22; TEMP 36.05844–36.6696; O2SAT 88–100
[2024-09-01 17:44] LABS: BG BASE EXCESS 4.2 mmol/L (-2.0-3.0); BG CARBOXYHEMOGLOBIN 0.3 % (0.5-1.5); BG FRACTION INSPIRED OXYGEN 21; BG HCO3 ACT 28.5 mmol/L (21.0-28.0); BG METHEMOGLOBIN 0.3 % (0.5-1.5); BG OXYHEMOGLOBIN 92.4 % (94.0-98.0); BG PCO2 41.3 mmHg (35.0-48.0); BG PH 7.456 (7.350-7.450); BG PO2 64.6 mmHg (83.0-108.0); BG SAMPLE SITE RIGHT RADIAL; BG TOTAL HEMOGLOBIN 12.8 g/dL (13.5-17.5); BG VENT MODE ROOM AIR
[2024-09-01] MEDS: OLANZAPINE 2.5MG TABLET PO SCH (21:03)
[2024-09-02] VITALS (8 sets, daily range): BP systolic 114–133; BP diastolic 66–81; PULSE 76–87; RESP 17–24; TEMP 36.3918–36.55848; O2SAT 95–98
[2024-09-03] VITALS: BP 120/70; PULSE 86; RESP 18; TEMP 36.114; O2SAT 96
[2024-09-03 04:00] VITALS: BP 139/78; PULSE 70; RESP 17; TEMP 36.00288; O2SAT 99
[2024-09-03 08:00] VITALS: BP 133/85; PULSE 91; RESP 19; TEMP 36.72516; O2SAT 98
[2024-09-03 16:00] VITALS: BP 151/94; PULSE 89; RESP 20; TEMP 36.72516; O2SAT 99
[2024-09-03 20:00] VITALS: BP 146/100; PULSE 91; RESP 18; TEMP 36.72516; O2SAT 96
[2024-09-04 07:37] VITALS: PULSE 92; RESP 20; O2SAT 99
[2024-09-04 08:00] VITALS: BP 132/84; PULSE 85; RESP 18; TEMP 36.50292; O2SAT 98
[2024-09-04 12:00] VITALS: BP 119/80; PULSE 86; RESP 18; TEMP 36.3918; O2SAT 100
[2024-09-04 16:00] VITALS: BP 122/86; PULSE 82; RESP 18; TEMP 36.55848; O2SAT 100
[2024-09-04 20:00] VITALS: BP 151/94; PULSE 92; RESP 20; TEMP 36.72516; O2SAT 95
[2024-09-05] VITALS: BP 154/88; PULSE 98; RESP 18; TEMP 36.3918; O2SAT 95
[2024-09-05 04:00] VITALS: BP 145/82; PULSE 84; RESP 18; TEMP 36.05844; O2SAT 97
[2024-09-05 08:00] VITALS: BP 129/79; PULSE 86; RESP 20; TEMP 36.00288; O2SAT 96
[2024-09-05 12:00] VITALS: BP 136/58; PULSE 88; RESP 18; TEMP 35.78064; O2SAT 95
== END 2024-09-05 13:50 | disposition home or self-care (01) | DRG 207 ==
LOC: ER 08:44 → 5EST 10:15 → EDBEDREQTM 10:18 → EDBEDREQ 10:18 → EDBEDREQSVC 10:18 → MICUSO 08-21 05:00 → 7EST 08-26 11:01 → MICUNO 08-28 00:14 → 6WST 08-28 14:13 → 4WST 09-01 23:32
PROVIDERS: ADMIT Internal Medicine; ATTEND Internal Medicine
PROC: 5A09357 Assistance with Respiratory Ventilation, Less than 24 Consecutive Hours, Continuous Positive Airway Pressure (ICD-10-PCS; principal; 2024-08-15)
PROC: 5A09357 Assistance with Respiratory Ventilation, Less than 24 Consecutive Hours, Continuous Positive Airway Pressure (ICD-10-PCS; 2024-08-21)
PROC: 5A1955Z Respiratory Ventilation, Greater than 96 Consecutive Hours (ICD-10-PCS; 2024-08-21)
PROC: 0BH17EZ Insertion of Endotracheal Airway into Trachea, Via Natural or Artificial Opening (ICD-10-PCS; 2024-08-21)
DX: J96.20 Acute and chronic respiratory failure, unspecified whether with hypoxia or hypercapnia (principal); I50.43 Acute on chronic combined systolic (congestive) and diastolic (congestive) heart failure; J44.1 Chronic obstructive pulmonary disease with (acute) exacerbation; Z59.00 Homelessness unspecified; N17.9 Acute kidney failure, unspecified; E46 Unspecified protein-calorie malnutrition; I42.9 Cardiomyopathy, unspecified; Z68.1 Body mass index [BMI] 19.9 or less, adult; I16.0 Hypertensive urgency; I11.0 Hypertensive heart disease with heart failure; E78.5 Hyperlipidemia, unspecified; R73.9 Hyperglycemia, unspecified; E88.09 Other disorders of plasma-protein metabolism, not elsewhere classified; E03.9 Hypothyroidism, unspecified; F19.10 Other psychoactive substance abuse, uncomplicated; D72.829 Elevated white blood cell count, unspecified; Z91.199 Patient's noncompliance with other medical treatment and regimen due to unspecified reason; Z86.73 Personal history of transient ischemic attack (TIA), and cerebral infarction without residual deficits
CPT/HCPCS: 31500; 36415; 36600; 71045; 80048; 80076; 80305; 81003; 82140; 82375; 82607; 82805; 83735; 83880; 84100; 84145; 84439; 84443; 84484; 85025; 85027; 87070; 93005; 93306; 93970; 94002; 94003; 94070; 94640; 94660; 94664; 97161; 98960; 99291; A4606; A4663; J0456; J0692; J1200; J1630; J1650; J1940; J2060; J2470; J2543; J2704; J2919; J2920; J3475; J3490; J7608; J7626; Q9957